=== PATIENT | male | born 1955 | race Caucasian/White ===

== ENCOUNTER 2016-11-10 21:09 | Inpatient (IN) | payer MEDICAID ==
[~2016-11-10] VITALS: Ht 182.9 cm; Wt 120.7 kg
[~2016-11-10 21:09] MED LIST: AMLO10TA80 PO; ASPI-1035 PO; ATEN100T PO; CANA300T PO; CLON0.3T PO; FURO40TA5 PO; GLIM4TAB2 PO; JARDIANCE PO; LISI40TA4 PO; LOSA100T14 PO; LOVA20TA2 PO; METF10002 PO; PIOG15TA13 PO; TEMA30CA PO
[2016-11-10 23:52] LABS: BASOPHILS % 1.2 % (0.0-2.0); EOSINOPHILS % 2.4 % (0.0-5.0); HEMATOCRIT. 35.6 % (42.0-52.0); HEMOGLOBIN. 11.9 g/dL (14.0-18.0); LYMPHOCYTES % 29.2 % (20.0-50.0); MEAN CORPUSCULAR HEMOGLOBIN 27.3 pg (28.0-32.0); MEAN CORPUSCULAR HGB CONC 33.4 g/dL (31.0-37.0); MEAN CORPUSCULAR VOLUME 81.6 fL (80.0-94.0); MEAN PLATELET VOLUME 8.5 fl (7.4-10.4); MONOCYTES % 10.4 % (2.0-8.0); NEUTROPHILS % 56.8 % (40.0-76.0); PLATELET 373 x1000/uL (130-400); RED BLOOD CELL COUNT 4.36 mill/uL (4.7-6.1); RED CELL DISTRIBUTION WIDTH 16.8 % (11.6-14.6); WHITE BLOOD COUNT 9.9 x1000/uL (4.5-11.0)
[2016-11-11 00:09] LABS: ALANINE AMINOTRANSFERASE 41 IU/L (13-61); ALBUMIN 3.3 g/dL (3.4-5.0); ANION GAP 16; CALCIUM 9.2 mg/dL (8.5-10.1); CARBON DIOXIDE 23 mEq/L (21-32); CHLORIDE 99 mEq/L (98-107); INDEX HEMOLYSI 4 (1-3); INDEX ICTERIC 1 (1-4); INDEX LIPEMIC 1 (1-3); NT PRO B-TYPE NATRIURETIC PEP 2084 pg/mL (5-125); UREA NITROGEN BLOOD 23 mg/dL (7-21); eGFR 56 mL/min (>60)
[2016-11-11 00:16] LABS: TROPONIN I 0.47 ng/mL (0.00-0.04)
[2016-11-11 00:33] LABS: INR 1.3; PARTIAL THROMBOPLASTIN TIME 32.9 sec (24.0-34.0); PROTHROMBIN TIME 13.3 sec
[2016-11-11 08:00] VITALS: BP 163/82
[2016-11-11] MEDS ORDERED: ENOXAPARIN 30MG/0.3ML SYR SUBCUT SCH (09:30)
[2016-11-11] MEDS ORDERED: APIXABAN PO (09:30)
[2016-11-11] MEDS ORDERED: CLOP75TA33 PO (09:30)
[2016-11-11] MEDS ORDERED: GABA-529 PO (09:41)
[2016-11-11] MEDS ORDERED: CLOPIDOGREL 75MG TABLET PO SCH (09:45)
[2016-11-11] MEDS: GABAPENTIN 100MG CAPSULE PO SCH ×2 (09:45→17:00)
[2016-11-11] MEDS: APIXABAN 5 MG TABLET PO SCH ×2 (10:08→17:04)
[2016-11-11] MEDS: ASPIRIN 81MG EC TABLET PO SCH (10:08)
[2016-11-11] MEDS: LISINOPRIL 40MG TABLET PO SCH (10:08)
[2016-11-11] MEDS: GLIMEPIRIDE 4MG TABLET PO SCH ×2 (10:09→17:08)
[2016-11-11] MEDS: ATENOLOL 100 MG TABLET PO SCH (10:10)
[2016-11-11] MEDS: AMLODIPINE 10MG TABLET PO SCH (10:10)
[2016-11-11] MEDS ORDERED: IOHEXOL-350 100 ML BOTTLE ONE (11:00)
[2016-11-11] MEDS ORDERED: SODIUM CHLORIDE 0.9% 10ML VIAL ONE (11:00)
[2016-11-11 11:06] LABS: BASOPHILS % 1.3 % (0.0-2.0); EOSINOPHILS % 1.5 % (0.0-5.0); HEMATOCRIT. 31.8 % (42.0-52.0); HEMOGLOBIN. 10.5 g/dL (14.0-18.0); LYMPHOCYTES % 26.3 % (20.0-50.0); MEAN CORPUSCULAR HGB CONC 33.1 g/dL (31.0-37.0); MEAN CORPUSCULAR VOLUME 81.7 fL (80.0-94.0); MEAN PLATELET VOLUME 8.6 fl (7.4-10.4); MONOCYTES % 8.7 % (2.0-8.0); NEUTROPHILS % 62.2 % (40.0-76.0); PLATELET 359 x1000/uL (130-400); RED BLOOD CELL COUNT 3.89 mill/uL (4.7-6.1); RED CELL DISTRIBUTION WIDTH 16.6 % (11.6-14.6); WHITE BLOOD COUNT 7.7 x1000/uL (4.5-11.0)
[2016-11-11 11:29] LABS: ANION GAP 16; CALCIUM 9.3 mg/dL (8.5-10.1); CARBON DIOXIDE 27 mEq/L (21-32); CHLORIDE 101 mEq/L (98-107); INDEX HEMOLYSI 1 (1-3); INDEX ICTERIC 1 (1-4); INDEX LIPEMIC 1 (1-3); LDL CHOLESTEROL 65 mg/dL (5-100); TRIGLYCERIDE 169 mg/dL (0-150); UREA NITROGEN BLOOD 21 mg/dL (7-21); eGFR > 60 mL/min (>60)
[2016-11-11 11:38] LABS: HDL CHOLESTEROL 38 mg/dL (40-59)
[2016-11-11 12:00] VITALS: BP 119/71
[2016-11-11 12:41] LABS: TROPONIN I 0.44 ng/mL (0.00-0.04)
[2016-11-11 15:26] LABS: *AMPHETAMINES SCREEN URINE NEGATIVE (NEGATIVE); *BARBITURATES SCREEN URINE NEGATIVE (NEGATIVE); *BENZODIAZEPINES SCREEN URINE NEGATIVE (NEGATIVE); *COCAINE SCREEN URINE NEGATIVE (NEGATIVE); CANNABINOID URINE SCREEN NEGATIVE (NEGATIVE); ECSTASY MDMA SCREEN URINE NEGATIVE (NEGATIVE); METHADONE URINE SCREEN NEGATIVE (NEGATIVE); OPIATES URINE SCREEN NEGATIVE (NEGATIVE); PHENCYCLIDINE URINE SCREEN NEGATIVE (NEGATIVE)
[2016-11-11 15:32] LABS: BG BASE EXCESS 2.1 mmol/L (-2.0-2.0); BG CARBOXYHEMOGLOBIN 0.5 % (0.5-1.5); BG DEOXYHEMOGLOBIN 3.7 % (0.0-5.0); BG FRACTION INSPIRED OXYGEN 21; BG HCO3 ACT 24.4 mmol/L (22.0-26.0); BG METHEMOGLOBIN 0.1 % (0.0-1.5); BG OXYGEN SATURATION 96.3 % (92.0-98.5); BG OXYHEMOGLOBIN 95.7 % (94.0-97.0); BG PCO2 30.9 mmHg (35.0-45.0); BG PH 7.516 (7.350-7.450); BG PO2 82.3 mmHg (75.0-100.0); BG SAMPLE SITE RIGHT RADIAL; BG TOTAL HEMOGLOBIN 11.8 g/dL (12.0-18.0); BG VENT MODE ROOM AIR
[2016-11-11 16:00] VITALS: BP 126/78
[2016-11-11] MEDS: METFORMIN HCL 500MG TABLET PO SCH (17:08)
[2016-11-11 20:00] VITALS: BP 129/79
[2016-11-11] MEDS: ATORVASTATIN CALCIUM 10MG TABLET PO SCH ×2 (20:31→20:33)
[2016-11-11] MEDS: CLONIDINE 0.3MG TABLET PO SCH (22:55)
[2016-11-12] VITALS: BP 129/69
[2016-11-12 04:00] VITALS: BP 124/82
[2016-11-12 08:00] VITALS: BP 127/71
[2016-11-12] MEDS: CLOPIDOGREL 75MG TABLET PO SCH ×2 (09:00→09:37)
[2016-11-12] MEDS ORDERED: TICAGRELOR 90 MG TABLET PO SCH (09:00)
[2016-11-12] MEDS: METFORMIN HCL 500MG TABLET PO SCH ×2 (09:37→17:38)
[2016-11-12] MEDS: GLIMEPIRIDE 4MG TABLET PO SCH ×2 (09:38→17:38)
[2016-11-12] MEDS: ATENOLOL 100 MG TABLET PO SCH (09:38)
[2016-11-12] MEDS: GABAPENTIN 100MG CAPSULE PO SCH ×2 (09:38→17:38)
[2016-11-12] MEDS: LISINOPRIL 40MG TABLET PO SCH (09:38)
[2016-11-12] MEDS: APIXABAN 5 MG TABLET PO SCH ×2 (09:39→17:39)
[2016-11-12] MEDS: ASPIRIN 81MG EC TABLET PO SCH (09:39)
[2016-11-12] MEDS: CLONIDINE 0.3MG TABLET PO SCH ×2 (09:39→21:00)
[2016-11-12] MEDS: AMLODIPINE 10MG TABLET PO SCH (09:39)
[2016-11-12 10:19] LABS: HEMATOCRIT 32.2 % (42.0-52.0); HEMOGLOBIN 10.6 g/dL (14.0-18.0); MEAN CORPUSCULAR HEMOGLOBIN 27.1 pg (28.0-32.0); MEAN CORPUSCULAR HGB CONC 33.1 g/dL (31.0-37.0); PLATELET 336 x1000/uL (130-400); RED BLOOD CELL COUNT 3.92 mill/uL (4.7-6.1); RED CELL DISTRIBUTION WIDTH 17.2 % (11.6-14.6); WHITE BLOOD COUNT 7.2 x1000/uL (4.5-11.0)
[2016-11-12 10:37] LABS: ANION GAP 16; CALCIUM 9.1 mg/dL (8.5-10.1); CARBON DIOXIDE 26 mEq/L (21-32); CHLORIDE 103 mEq/L (98-107); INDEX HEMOLYSI 3 (1-3); INDEX ICTERIC 1 (1-4); INDEX LIPEMIC 1 (1-3); UREA NITROGEN BLOOD 16 mg/dL (7-21); eGFR > 60 mL/min (>60)
[2016-11-12 12:00] VITALS: BP 159/90
[2016-11-12 16:00] VITALS: BP 138/86
[2016-11-12 20:00] VITALS: BP 119/69
[2016-11-12] MEDS: ATORVASTATIN CALCIUM 10MG TABLET PO SCH (21:05)
[2016-11-13] VITALS: BP 129/85
[2016-11-13 04:00] VITALS: BP 127/77
[2016-11-13] MEDS: GLIMEPIRIDE 4MG TABLET PO SCH (07:36)
[2016-11-13] MEDS: METFORMIN HCL 500MG TABLET PO SCH (07:36)
[2016-11-13 07:52] LABS: BASOPHILS % 1.7 % (0.0-2.0); EOSINOPHILS % 2.3 % (0.0-5.0); HEMATOCRIT. 30.1 % (42.0-52.0); HEMOGLOBIN. 10.2 g/dL (14.0-18.0); LYMPHOCYTES % 24.8 % (20.0-50.0); MEAN CORPUSCULAR HEMOGLOBIN 27.7 pg (28.0-32.0); MEAN CORPUSCULAR HGB CONC 33.7 g/dL (31.0-37.0); MEAN CORPUSCULAR VOLUME 82.2 fL (80.0-94.0); MEAN PLATELET VOLUME 8.5 fl (7.4-10.4); MONOCYTES % 9.8 % (2.0-8.0); NEUTROPHILS % 61.4 % (40.0-76.0); PLATELET 304 x1000/uL (130-400); RED BLOOD CELL COUNT 3.67 mill/uL (4.7-6.1); RED CELL DISTRIBUTION WIDTH 16.8 % (11.6-14.6)
[2016-11-13 08:00] VITALS: BP 130/100
[2016-11-13 08:06] LABS: ANION GAP 12; CALCIUM 9.2 mg/dL (8.5-10.1); CARBON DIOXIDE 28 mEq/L (21-32); CHLORIDE 104 mEq/L (98-107); INDEX HEMOLYSI 1 (1-3); INDEX ICTERIC 1 (1-4); INDEX LIPEMIC 1 (1-3); MAGNESIUM 1.7 mg/dL (1.8-2.4); UREA NITROGEN BLOOD 13 mg/dL (7-21); eGFR > 60 mL/min (>60)
[2016-11-13] MEDS: ASPIRIN 81MG EC TABLET PO SCH (08:53)
[2016-11-13] MEDS: CLOPIDOGREL 75MG TABLET PO SCH (08:53)
[2016-11-13] MEDS: ATENOLOL 100 MG TABLET PO SCH (08:53)
[2016-11-13] MEDS: APIXABAN 5 MG TABLET PO SCH (08:53)
[2016-11-13] MEDS: GABAPENTIN 100MG CAPSULE PO SCH (08:53)
[2016-11-13] MEDS: CLONIDINE 0.3MG TABLET PO SCH (08:54)
[2016-11-13] MEDS: AMLODIPINE 10MG TABLET PO SCH (08:54)
[2016-11-13] MEDS: LISINOPRIL 40MG TABLET PO SCH (08:54)
[2016-11-13] MEDS ORDERED: POTASSIUM CHLORIDE 20MEQ TABLET SR PO NR (09:00)
[2016-11-13] MEDS ORDERED: MAGNESIUM 1 G PREMIX 100 ML IV NR (10:00)
[2016-11-13 12:00] VITALS: BP 117/74
[2016-11-13 13:08] VITALS: BP 117/76
== END 2016-11-13 14:25 | disposition home or self-care (01) | DRG 133 ==
LOC: ER 21:10 → 5WST 11-11 02:50
PROVIDERS: ADMIT Family Medicine Adult Medicine; ATTEND Family Medicine Adult Medicine
PROC: 02HV33Z Insertion of Infusion Device into Superior Vena Cava, Percutaneous Approach (ICD-10-PCS; principal; 2016-11-11)
PROC: B548ZZA Ultrasonography of Superior Vena Cava, Guidance (ICD-10-PCS; 2016-11-11)
DX: J96.00 Acute respiratory failure, unspecified whether with hypoxia or hypercapnia (principal); I26.99 Other pulmonary embolism without acute cor pulmonale; E87.0 Hyperosmolality and hypernatremia; I82.402 Acute embolism and thrombosis of unspecified deep veins of left lower extremity; D68.59 Other primary thrombophilia; E11.621 Type 2 diabetes mellitus with foot ulcer; E11.51 Type 2 diabetes mellitus with diabetic peripheral angiopathy without gangrene; E44.1 Mild protein-calorie malnutrition; L97.529 Non-pressure chronic ulcer of other part of left foot with unspecified severity; L03.119 Cellulitis of unspecified part of limb; I48.0 Paroxysmal atrial fibrillation; I25.10 Atherosclerotic heart disease of native coronary artery without angina pectoris; E78.5 Hyperlipidemia, unspecified; I11.9 Hypertensive heart disease without heart failure; Z86.718 Personal history of other venous thrombosis and embolism; Z87.11 Personal history of peptic ulcer disease; Z95.5 Presence of coronary angioplasty implant and graft; I25.2 Old myocardial infarction; Z82.49 Family history of ischemic heart disease and other diseases of the circulatory system; Z87.891 Personal history of nicotine dependence; Z79.82 Long term (current) use of aspirin; Z79.84 Long term (current) use of oral hypoglycemic drugs; Z79.899 Other long term (current) drug therapy
CPT/HCPCS: 36415; 36569; 36600; 71010; 71275; 76937; 78580; 80048; 80053; 80061; 80305; 82375; 82805; 83036; 83735; 83880; 84484; 85025; 85027; 85379; 85610; 85730; 93005; 93306; 93923; 97162; 99285; A4216; A6261; C1725; J1650; J3475; J7050; Q9967